=== PATIENT | female | born 1965 | race Caucasian/White ===

== ENCOUNTER 2020-05-13 17:37 | Emergency (ER) | payer BC, OTHER ==
[2020-05-13] MEDS ORDERED: DIPHTH,PERTUSS(ACELL),TET 0.5 ML DISP.SYRIN IM ONE ×2 (17:51→18:06)
--- NOTE | 2020-05-13 17:53 | PDOC ---
Rapid Medical Evaluation Time Seen by Provider: 05/13/20 17:47 Medical Evaluation: 05/13/20 17:51 I performed a brief in-person evaluation of this patient. Pt is a 55 y/o female with a R forearm laceration that she sustained just prior to arrival. Unknown last tetanus. Pertinent physical exam findings: pt able to move all fingers well. bandage in place. I have ordered the following: boostrix Patient to proceed to ED for further evaluation. Discharge Disposition - Diagnosis Laceration of right forearm - Referrals - Patient Instructions - Post Discharge Activity
[2020-05-13 17:55] VITALS: BP 133/87; PULSE 99; TEMP 99; BMI 37.8
--- NOTE | 2020-05-13 18:55 | PDOC ---
History of Present Illness - General Chief Complaint: Laceration Stated Complaint: R ARM LACERATION Time Seen by Provider: 05/13/20 17:47 History Source: Patient - History of Present Illness Timing/Duration: reports: this evening Severity: Yes: mild Location: reports: extremities Past History - Medical History Allergies/Adverse Reactions: Allergies Allergy/AdvReac Type Severity Reaction Status Date / Time No Known Allergies Allergy Verified 05/13/20 17:52 COPD: No - Psycho-Social/Smoking History Smoking History: Never smoked - Substance Abuse Hx (Audit-C & DAST Scrn) How often the patient has a drink containing alcohol: Never Score: In Men: 4 or > Positive; In Women: 3 or > Positive: 0 Screen Result (Pos requires Nsg. Audit-10AR): Negative In the last yr the pt used illegal drug/Rx for NonMed reason: No Score: Yes response is considered Positive: 0 Screen Result (Positive result requires Nsg. DAST-10): Negative Review of Systems - Review of Systems Integumentary: Yes: Other (wound) *Physical Exam - Vital Signs Last Vital Signs Temp Pulse Resp BP Pulse Ox 99 F 99 H 18 133/87 96 05/13/20 17:52 05/13/20 17:52 05/13/20 17:52 05/13/20 17:52 05/13/20 17:52 - Physical Exam General Appearance: Yes: Appropriately Dressed. No: Apparent Distress HEENT: positive: Normal Voice Neck: positive: Supple Respiratory/Chest: negative: Respiratory Distress Integumentary: positive: Dry, Warm, Other (~1cm superficial lac to R forearm, bleeding controlled, FROMI to fingers/wrist) Neurologic: positive: Fully Oriented, Alert, Normal Mood/Affect Procedures - Laceration/Wound Repair Right Arm Wound Length: to 2.5 cm Wound Explored: clean Wound's Depth, Shape: superficial Irrigated w/ Saline: Yes Betadine Prep: Yes Anesthesia: 1% Lidocaine (5) Wound Repaired With: Sutures Suture Size/Type: 4:0, nylon Number of Sutures: 7 Sterile Dressing Applied: Yes (bacitracin, xeroform, 2x2, gauze roll) ED Treatment Course - Medications Given in the ED: ED Medications Discontinued Medications Generic Name Dose Route Start Last Admin Trade Name Freq PRN Reason Stop Dose Admin Diphtheria/Tetanus/Acell Pertussis 0.5 ml 05/13/20 17:51 05/13/20 18:07 Boostrix - IM 05/13/20 17:52 0.5 ml .ONCE ONE Administration Medical Decision Making - Medical Decision Making 05/13/20 18:53 55 yo F, no sig hx, here w/ R forearm lac today 2/2 broken lac, no sensory changes. needs tetanus See exam Arm lac Repaired without complication Tetanus updated Wound check as needed in 48 hrs Discharge - Discharge Information Problems reviewed: Yes Clinical Impression/Diagnosis: Laceration of right forearm Qualifiers: Encounter type: initial encounter Qualified Code(s): S51.811A - Laceration without foreign body of right forearm, initial encounter Condition: Good Disposition: HOME - Follow up/Referral Referrals: Annette Barrera MD [Primary Care Provider] - - Patient Discharge Instructions Patient Printed Discharge Instructions: DI for Laceration Repair Additional Instructions: Keep dressing in place for at least 24 hours after which one can be opened to air. You can gently cleaned wound with mild soap and water after 24 hours to prevent crusting over the suture knots. You can also apply an antibiotic ointment twice a day until sutures are removed. Return for redness, discharge or fever Sutures are removed in 7 days - Post Discharge Activity
== END 2020-05-13 18:56 | disposition home or self-care (01) ==
LOC: JERFT 17:37
PROC: 3E0234Z Introduction of Serum, Toxoid and Vaccine into Muscle, Percutaneous Approach (ICD-10-PCS; principal; 2020-05-13)
PROC: 0HQDXZZ Repair Right Lower Arm Skin, External Approach (ICD-10-PCS; principal; 2020-05-13)
DX: S51.811A Laceration without foreign body of right forearm, initial encounter (principal); Y99.9 Unspecified external cause status
CPT/HCPCS: 90715; 99282-25

== ENCOUNTER 2020-05-23 17:35 | Emergency (ER) | payer BC, OTHER ==
[2020-05-23 17:54] VITALS: BP 122/85; PULSE 73; TEMP 97.8; BMI 38.2
--- NOTE | 2020-05-23 18:00 | PDOC ---
Suture Removal/Wound Check HPI - History of Present Illness Chief Complaint: Suture/Staple Removal(Here) Stated Complaint: R/ARM/STITCHES REMOVAL Time Seen by Provider: 05/23/20 18:01 History Source: Yes: Patient Exam Limitations: Yes: Clinical Condition Treated at: [facility] Date of Last ED visit: 05/13/20 - Previous ED Treatment Type of procedure performed on last visit: Yes: Laceration Repair Tetanus Immunization: Yes: Given at last ED visit Antibiotics Prescribed: No Past History - Medical History Allergies/Adverse Reactions: Allergies Allergy/AdvReac Type Severity Reaction Status Date / Time No Known Allergies Allergy Verified 05/13/20 17:52 COPD: No - Psycho-Social/Smoking History Smoking History: Never smoked Information on smoking cessation initiated: No - Substance Abuse Hx (Audit-C & DAST Scrn) How often the patient has a drink containing alcohol: Never Score: In Men: 4 or > Positive; In Women: 3 or > Positive: 0 Screen Result (Pos requires Nsg. Audit-10AR): Negative In the last yr the pt used illegal drug/Rx for NonMed reason: No Score: Yes response is considered Positive: 0 Screen Result (Positive result requires Nsg. DAST-10): Negative Suture Removal/Wound Check PE - Physical Exam Laceration/Wound Check Symptoms: reports: None. denies: Fever, Chills, Redness, Discharge, Weakness Pain Intensity: 0 Current Severity Level: None Location of Laceration/Wound: right: Forearm *Review of Systems - Review of Systems Able to Perform ROS?: Yes Constitutional: No: Chills, Fever, Malaise HEENTM: No: Symptoms Reported, See HPI, Eye Pain, Blurred Vision, Tearing, Recent change in vision, Double Vision, Cataracts, Ear Pain, Ocular Prothesis, Ear Discharge, Nose Pain, Nose Congestion, Tinnitus, Nose Bleeding, Hearing Loss, Throat Pain, Throat Swelling, Mouth Pain, Dental Problems, Difficulty Swallowing, Mouth Swelling, Other Respiratory: No: Symptoms reported Musculoskeletal: Yes: Symptoms Reported, See HPI. No: Muscle Pain (to right forearm) Integumentary: Yes: Symptoms Reported, See HPI, Other (lac to right forearm with sutures in place) Neurological: No: Numbness, Paresthesia, Tingling All Other Systems: Reviewed and Negative *Physical Exam - Vital Signs Last Vital Signs Temp Pulse Resp BP Pulse Ox 97.8 F 73 17 122/85 98 05/23/20 17:51 05/23/20 17:51 05/23/20 17:51 05/23/20 17:51 05/23/20 17:51 - Physical Exam General Appearance: Yes: Nourished, Appropriately Dressed. No: Apparent Distress HEENT: positive: Normal ENT Inspection Neck: negative: Supple Musculoskeletal: positive: Normal Inspection, Other (no TTP to right forearm over lac area) Extremity: positive: Normal Capillary Refill, Normal Inspection Integumentary: positive: Normal Color, Other (2cm lac to plantar aspect of right distal forearm with [address] no erythema. no wound dehiscence. no evidence of wound infection) Neurologic: positive: Fully Oriented, Alert, Normal Mood/Affect, Normal Response, Motor Strength 5/5 Medical Decision Making - Medical Decision Making 05/23/20 18:04 55yo present for suture removal s/p presenting a week ago with lac to right forearm from broken glass requiring suture placement. Denies redness to area, fever, chills or discharge from wound. Tetanus vaccine given at last visit. exam sig for 2cm lac to plantar aspect of right forearm with [address] no skin erythema or evidence of wound infection. sutures removed with suture removal kit w/o complication. bacitracin applied to wound. wound covered with adhesive bandage. pt tolerated procedure. pt educated on continues home wound care. stable for d/c and left department w/o complications with Discharge - Discharge Information Problems reviewed: Yes Clinical Impression/Diagnosis: Encounter for removal of sutures Laceration of right forearm Qualifiers: Encounter type: subsequent encounter Qualified Code(s): S51.811D - Laceration without foreign body of right forearm, subsequent encounter Condition: Stable Disposition: HOME - Admission No - Follow up/Referral Referrals: Annette Barrera MD [Primary Care Provider] - - Patient Discharge Instructions Patient Printed Discharge Instructions: DI for Suture Removal Additional Instructions: continue putting bacitracin on wound until fully healed. Take Motrin as needed for pain. follow-up with Your PCP as needed - Post Discharge Activity
== END 2020-05-23 18:13 | disposition home or self-care (01) ==
LOC: JER 17:35 → JERFT 17:35
DX: Z48.02 Encounter for removal of sutures (principal)
CPT/HCPCS: 99281-25